=== PATIENT | male | born 1990 | race Caucasian/White ===

== ENCOUNTER 2018-09-28 10:04 | Inpatient (IN) ==
--- NOTE | 2018-09-28 10:20 | Emergency Department Note ---
Disposition Clinical Impression: Suicidal ideation, Depression, IV drug user, History of endocarditis, Marijuana abuse, Narcotic abuse Disposition: Admitted As Inpatient Referrals: NONE,PCP [Primary Care Provider] - Forms: ED Satisfaction Letter General Adult HPI - General Chief complaint: ED Psychiatric Symptoms Stated complaint: Depressed,meds not working Time Seen by Provider: 09/28/18 10:20 Source: patient Limitations: no limitations - History of Present Illness HPI Narrative: 28-year-old male with a history of depression and drug abuse reports emergency department describing increasing anxiety and depression. He reports he has relapsed and is using narcotics again. The patient denies attempted overdose or self injury but feels that he is becoming unstable and may harm himself. The patient reports he has a history of reflux and has had some burning in his abdomen. There is no history of bloody stool. No vomiting diarrhea abdominal pain chest pain shortness of breath described. No fevers cough runny nose or pain sore throat headache or any trouble walking talking hearing seeing or speaking is reported. The patient feels that he may benefit from psychiatric hospitalization, he states he feels like he needs to be admitted to 1A. Pain Scale: 0 - Related Data Previous Rx's Medication Instructions Recorded Sertraline [Zoloft] 50 mg PO DAILY #30 tablet 07/03/18 Allergies Allergy/AdvReac Type Severity Reaction Status Date / Time vancomycin Allergy Hives Verified 09/28/18 10:17 hydrocodone [From Vicodin] AdvReac Dizziness Verified 09/28/18 10:17 Review of Systems: As Per HPI (A complete review of systems was reviewed and is otherwise negative or noncontributory.) Past Medical History - Past Medical History Medical history: Reports: hepatitis Psychiatric history: Reports: depression - Social History Smoking Status: Current every day smoker Smokeless Tobacco Status: No Alcohol use: Reports: none Drug use: Reports: opiates, marijuana Physical Exam - General Limitations: no limitations General appearance: alert, in no apparent distress - Head Head exam: atraumatic, normocephalic, normal inspection - Eye Eye exam: Present: normal appearance, PERRL, EOMI - ENT ENT exam: normal exam, normal oropharynx, mucous membranes moist - Neck Neck exam: Present: normal inspection, full ROM, trachea midline - Chest Chest inspection: Present: normal inspection, symmetric chest wall rise - Respiratory Respiratory exam: Present: normal lung sounds bilaterally. Absent: respiratory distress, prolonged expiratory phase - Cardiovascular Cardiovascular exam: Present: regular rate, normal rhythm, normal heart sounds - Abdominal Exam Abdominal exam: Present: soft, Non-Tender, normal bowel sounds. Absent: tenderness, distention, guarding, rebound, rigidity - Extremities Exam Extremities exam: Present: normal inspection, full ROM, normal capillary refill. Absent: tenderness, pedal edema, joint swelling, calf tenderness - Expanded Lower Extremity Exam Neurovascular/Tendon exam: Present: normal capillary refill. Absent: motor deficit, sensory deficit, tendon deficit, extremity cold to touch, pallor - Back Exam Back exam: Present: full ROM. Absent: tenderness, CVA tenderness (R), CVA tenderness (L) - Neurological Exam Neurological exam: Present: alert, oriented X3, CN II-XII intact. Absent: motor sensory deficit - Psychiatric Psychiatric exam: Present: normal affect, normal mood - Skin Skin exam: Present: warm, dry, intact, normal color Course Vital Signs Temperature 98.0 F 09/28/18 10:13 Pulse Rate 79 09/28/18 10:13 Respiratory Rate 14 09/28/18 10:13 Blood Pressure 130/81 09/28/18 10:13 O2 Sat by Pulse Oximetry 96 09/28/18 10:13 Temperature 98.0 F 09/28/18 10:13 Pulse Rate 79 09/28/18 10:13 Respiratory Rate 14 09/28/18 10:13 Blood Pressure 130/81 09/28/18 10:13 O2 Sat by Pulse Oximetry 96 09/28/18 10:13 Oxygen Delivery Oxygen Delivery Room Air Medical Decision Making - [facility] Narrative Medical decision making narrative: The patient affirms suicidal ideation on my questioning. He has been depressed and not responsive to Zoloft per his report. He has been admitted to the psychiatric unit before. He appears to be medically stable. A psychiatric consult was been requested and the patient was evaluated with plans to admit the patient to the psychiatric unit. - Lab Data Lab results reviewed: Yes I reviewed the patient's lab results. Result diagrams: 09/28/18 11:10 09/28/18 11:10 Lab Results 09/28/18 09/28/18 09/28/18 Range/Units 11:06 11:06 11:10 WBC 7.1 (4.3-11.1) K/mcL RBC 4.43 (4.19-5.50) M/mcL Hgb 12.9 (12.9-16.9) g/dL Hct 38.5 (37.5-50.1) % MCV 86.9 (83.0-100.0) fL MCH 29.1 (28.0-33.3) pg MCHC 33.5 (31.6-35.5) g/dL RDW 13.4 (11.5-14.5) % Plt Count 234 (140-400) K/mcL MPV 10.2 (9.4-12.4) fL Immature Gran % 0.7 (0-4) % Seg Neutrophils % 55.7 % Lymphocytes % 31.8 % Monocytes % 7.7 % Eosinophils % 3.8 % Basophils % 0.3 % Neutrophils # 4.0 (1.6-8.9) K/mcL Lymphocytes # 2.3 (0.6-4.6) K/mcL Monocytes # 0.6 (0.0-1.3) K/mcL Eosinophils # 0.3 (0.0-0.6) K/mcL Basophils # 0.0 (0.0-0.2) K/mcL Sodium (136-145) mEq/L Potassium (3.5-5.1) mEq/L Chloride (98-107) mEq/L Carbon Dioxide (23-29) mEq/L BUN (6-20) mg/dL Creatinine (0.70-1.30) mg/dL Est GFR ( Amer) (> 60) Est GFR (Non-Af Amer) (> 60) BUN/Creatinine Ratio (6-26) Glucose (70-105) mg/dL Calculated Osmolality (280-300) Calcium (8.6-10.3) mg/dL Total Bilirubin (0.3-1.0) mg/dL Direct Bilirubin (0.0-0.2) mg/dL Indirect Bilirubin (0.0-1.2) mg/dL AST (13-39) Units/L ALT (7-52) Units/L Alkaline Phosphatase (34-104) Units/L Serum Total Protein (6.4-8.9) g/dL Albumin (3.5-5.7) g/dL Globulin (2.4-3.5) g/dL Albumin/Globulin Ratio (1.1-2.2) TSH (0.340-5.600) mcIU/mL Urine Color Yellow (Yellow) Urine Clarity Clear (Clear) Urine pH 6.5 (5.0-8.0) pH Units Ur Specific [place] 1.019 (1.010-1.025) Urine Protein Negative (Neg-Trace) mg/dL Urine Glucose (UA) Normal (Normal) mg/dL Urine Ketones Negative (Negative) mg/dL Urine Blood Negative (Negative) Urine Nitrite Negative (Negative) Urine Bilirubin Negative (Negative) Urine Urobilinogen Normal (Normal) mg/dL Ur Leukocyte Esterase Negative (Negative) Salicylates (15.0-30.0) mg/dL Urine Opiates Screen Positive H (Deuiyc=550) ng/mL Acetaminophen (10-20) mcg/mL Ur Barbiturates Screen Negative (Deqgal=083) ng/mL Ur Phencyclidine Scrn Negative (Cutoff=25) ng/mL Ur Amphetamines Screen Negative (Qbplzm=1253) ng/mL U Benzodiazepines Scrn Negative (Mzuocv=674) ng/mL Urine Cocaine Screen Negative (Cutoff= 300) ng/mL U Marijuana (THC) Screen Positive H (Cutoff = 50) ng/mL Ur Drug Screen Interp See Below Ethyl Alcohol (Less than 10) mg/dL 09/28/18 Range/Units 11:10 WBC (4.3-11.1) K/mcL RBC (4.19-5.50) M/mcL Hgb (12.9-16.9) g/dL Hct (37.5-50.1) % MCV (83.0-100.0) fL MCH (28.0-33.3) pg MCHC (31.6-35.5) g/dL RDW (11.5-14.5) % Plt Count (140-400) K/mcL MPV (9.4-12.4) fL Immature Gran % (0-4) % Seg Neutrophils % % Lymphocytes % % Monocytes % % Eosinophils % % Basophils % % Neutrophils # (1.6-8.9) K/mcL Lymphocytes # (0.6-4.6) K/mcL Monocytes # (0.0-1.3) K/mcL Eosinophils # (0.0-0.6) K/mcL Basophils # (0.0-0.2) K/mcL Sodium 139 (136-145) mEq/L Potassium 3.9 (3.5-5.1) mEq/L Chloride 104 (98-107) mEq/L Carbon Dioxide 28 (23-29) mEq/L BUN 13 (6-20) mg/dL Creatinine 0.70 (0.70-1.30) mg/dL Est GFR ( Amer) > 60 (> 60) Est GFR (Non-Af Amer) > 60 (> 60) BUN/Creatinine Ratio 19 (6-26) Glucose 101 (70-105) mg/dL Calculated Osmolality 288 (280-300) Calcium 9.6 (8.6-10.3) mg/dL Total Bilirubin 1.1 H (0.3-1.0) mg/dL Direct Bilirubin 0.5 H (0.0-0.2) mg/dL Indirect Bilirubin 0.6 (0.0-1.2) mg/dL AST 28 (13-39) Units/L ALT 58 H (7-52) Units/L Alkaline Phosphatase 76 (34-104) Units/L Serum Total Protein 7.0 (6.4-8.9) g/dL Albumin 4.2 (3.5-5.7) g/dL Globulin 2.8 (2.4-3.5) g/dL Albumin/Globulin Ratio 1.5 (1.1-2.2) TSH 4.151 (0.340-5.600) mcIU/mL Urine Color (Yellow) Urine Clarity (Clear) Urine pH (5.0-8.0) pH Units Ur Specific [place] (1.010-1.025) Urine Protein (Neg-Trace) mg/dL Urine Glucose (UA) (Normal) mg/dL Urine Ketones (Negative) mg/dL Urine Blood (Negative) Urine Nitrite (Negative) Urine Bilirubin (Negative) Urine Urobilinogen (Normal) mg/dL Ur Leukocyte Esterase (Negative) Salicylates < 2.5 L (15.0-30.0) mg/dL Urine Opiates Screen (Vknkcp=502) ng/mL Acetaminophen < 10 L (10-20) mcg/mL Ur Barbiturates Screen (Qtnvvw=384) ng/mL Ur Phencyclidine Scrn (Cutoff=25) ng/mL Ur Amphetamines Screen (Qzhqcz=4893) ng/mL U Benzodiazepines Scrn (Qfaxqg=439) ng/mL Urine Cocaine Screen (Cutoff= 300) ng/mL U Marijuana (THC) Screen (Cutoff = 50) ng/mL Ur Drug Screen Interp Ethyl Alcohol < 10 (Less than 10) mg/dL
[2018-09-28 11:16] LABS: Bilirubin,Urine Negative (Negative); Blood,Urine Negative (Negative); Clarity,Urine Clear (Clear); Color,Urine Yellow (Yellow); Glucose,Urine (UA) Normal (Normal); Ketones,Urine Negative (Negative); Leukocyte Esterase,Urine Negative (Negative); Nitrite,Urine Negative (Negative); PH,Urine 6.5 pH Units (5.0-8.0); Protein,Urine Negative (Neg-Trace); Specific Gravity,Urine 1.019 (1.010-1.025); Urobilinogen,Urine Normal (Normal)
[2018-09-28 11:21] LABS: Basophils % 0.3 %; Eosinophils # 0.3 K/mcL (0.0-0.6); Eosinophils % 3.8 %; Hematocrit 38.5 % (37.5-50.1); Hemoglobin 12.9 g/dL (12.9-16.9); Immature Granulocytes % 0.7 % (0-4); Lymphocytes # 2.3 K/mcL (0.6-4.6); Lymphocytes % 31.8 %; Mean Corpuscular HGB Conc 33.5 g/dL (31.6-35.5); Mean Corpuscular Hemoglobin 29.1 pg (28.0-33.3); Mean Corpuscular Volume 86.9 fL (83.0-100.0); Mean Platelet Volume 10.2 fL (9.4-12.4); Monocytes # 0.6 K/mcL (0.0-1.3); Monocytes % 7.7 %; Platelet Count 234 K/mcL (140-400); Red Blood Count 4.43 M/mcL (4.19-5.50); Red Cell Distribution Width 13.4 % (11.5-14.5); Segmented Neutrophils % 55.7 %
[2018-09-28 11:25] LABS: Amphetamine Screen,Urine Negative ng/mL (Cutoff=1000); Barbiturate Screen,Urine Negative ng/mL (Cutoff=200); Benzodiazepines Screen,Urine Negative ng/mL (Cutoff=200); Cannabinoid Screen,Urine Positive ng/mL (Cutoff = 50); Cocaine Screen,Urine Negative ng/mL (Cutoff= 300); Opiate Screen,Urine Positive ng/mL (Cutoff=300); Phencyclidine Screen,Urine Negative ng/mL (Cutoff=25)
[2018-09-28 11:42] LABS: Acetaminophen < 10 mcg/mL (10-20); Alanine Aminotransferase 58 Units/L (7-52); Albumin 4.2 g/dL (3.5-5.7); Albumin/Globulin Ratio 1.5 (1.1-2.2); Alkaline Phosphatase 76 Units/L (34-104); Aspartate Amino Transferase 28 Units/L (13-39); BUN/Creatinine Ratio 19 (6-26); Bilirubin,Direct 0.5 mg/dL (0.0-0.2); Bilirubin,Indirect 0.6 mg/dL (0.0-1.2); Bilirubin,Total 1.1 mg/dL (0.3-1.0); Blood Urea Nitrogen 13 mg/dL (6-20); Calcium 9.6 mg/dL (8.6-10.3); Carbon Dioxide 28 mEq/L (23-29); Chloride 104 mEq/L (98-107); Ethanol < 10 mg/dL (Less than 10); Globulin 2.8 g/dL (2.4-3.5); Glucose 101 mg/dL (70-105); Osmolality,Calculated 288 (280-300); Potassium 3.9 mEq/L (3.5-5.1); Salicylate < 2.5 mg/dL (15.0-30.0); Sodium 139 mEq/L (136-145); eGFR For Non-African Americans > 60 (> 60)
[2018-09-28] MEDS ORDERED: Famotidine 20 MG TABLET PO ONE (11:53)
[2018-09-28 11:54] LABS: Thyroid Stimulating Hormone 4.151 mcIU/mL (0.340-5.600)
[2018-09-28] MEDS ORDERED: traZODone 50 MG TABLET PO PRN (15:18)
[2018-09-28] MEDS ORDERED: *HR* LORazepam 2 MG/ML VIAL IM PRN (15:18)
[2018-09-28] MEDS ORDERED: *HR* LORazepam 1 MG TABLET PO PRN (15:18)
[2018-09-28] MEDS ORDERED: Haloperidol Lactate 5 MG/ML VIAL IM PRN (15:18)
[2018-09-28] MEDS ORDERED: MOM Conc 10 ML UD.LIQ PO PRN (15:18)
[2018-09-28] MEDS ORDERED: Mag Hydrox/Al Hydrox/Simeth 30 ML UDC PO PRN (15:18)
[2018-09-28] MEDS: Nicotine 2 MG GUM BC PRN (19:00)
--- NOTE | 2018-09-29 11:23 | Psychiatry History & Physical ---
Date of Encounter: 09/29/18 Time of Encounter: 11:18 History of Present Illness Patient Stated Chief Complaint: suicidal ideation Medicare Admission Attestation: For traditional Medicare patients the provided hospital inpatient services are reasonable and necessary and in the case of services not specified as inpatient-only under 42 CFR 419.22 (n), that they are appropriately provided as inpatient services in accordance 42 CFR 412.3. For Critical Access Hospital the patient may reasonably be expected to be discharged or transferred to a hospital within 96 hours after admission to the Critical Access Hospital. Admitted From: Home Plans for Post Hospital Care: Home History of Present Illness: Mr. Pérez is a 28 year old male who was admitted following a relapse on heroin and increasing depression with SI. Client had been clean for 22 months with the help of Vivitrol but relapsed approximately one month ago. Stopped using Vivitrol in July because he thought he could control his addiction on his own. Set up an appointment for himself to start getting it again but won't be seen until October 14. Client did not think he could wait that long as he is spending $200 a day and using a gram of heroin a day. Client has one previous hospitalization following an overdose attempt. Also attempted to shoot himself around that time but does not like to talk about it. Started on Zoloft with positive results. However, he stopped the medication after being discharged and did not follow up with treatment providers as recommended. Thinks now he needs the help. Not willing to consider rehab but wants the Zoloft, Vivitrol and outpatient linkage. Has support from mother and girlfriend. Denies physical health problems although chart indicates he is Hep C positive. No other drug use except for THC. Family history of depression in mother and substance abuse in father. Allergy to Vicodin. States he breaks out in hives. Past Med Surg Social Fam HX - Past Medical History Medical history: hepatitis - Past Psychiatric History Psychiatric history: Reports: depression, prior suicide attempt, previous psychiatric hospitalization Family psychiatric history: Yes Family Psychiatric History Details: mother-depression, father-substance abuse Family History of Suicide: Unknown - Social History Smoking Status: Current every day smoker Smokeless Tobacco Status: No Alcohol use: none Drug use: opiates, marijuana, IV Drug Use - Family History Mother Family Member Ethnicity: Non- Living Status: Still Living Hx Family Endocrine Disorder: Yes (DM) Medications & Allergies Sertraline [Zoloft] 50 mg PO DAILY #30 tablet 07/03/18 [Rx] Allergy/AdvReac Type Severity Reaction Status Date / Time vancomycin Allergy Hives Verified 09/28/18 10:17 hydrocodone [From Vicodin] AdvReac Dizziness Verified 09/28/18 10:17 Review of Systems Constitutional: Denies: fever, chills, weakness, weight change Eyes: Denies: eye pain, vision change Ears, Nose, Throat: Denies: ear pain, throat pain, dental pain, hearing loss, congestion Cardiovascular: Denies: chest pain, palpitations, dyspnea on exertion Respiratory: Denies: cough, dyspnea, wheezes Gastrointestinal: Denies: abdominal pain, nausea, vomiting, diarrhea, constipation Genitourinary male: Denies: urgency, dysuria, frequency, genital lesions Musculoskeletal: Denies: joint swelling, joint pain Integumentary: Denies: rash, lesions, pruritus Neurological: Denies: headache, weakness, numbness, memory loss Endocrine: Denies: fatigue, heat or cold intolerance Hematologic/Lymphatic: Denies: easy bruising, lymphadenopathy Allergic/Immunologic: Denies: urticaria, itchy eyes Exam - HEENT Head exam IM: Present: atraumatic Eye exam IM: Present: EOMI, normal appearance, PERRL ENT exam IM: Present: normal exam - Neurological Neurological exam: Present: CN II-XII intact - Respiratory Respiratory exam IM: Present: CTAB - GI/Abdominal GI/Abdominal exam IM: Present: normal bowel sounds, soft. Absent: tenderness - Extremities Extremities exam IM: Present: full ROM - Skin Skin exam IM: Present: dry, warm - Constitutional Vitals: Temp Pulse Resp BP Pulse Ox 98.2 F 77 18 119/80 99 09/28/18 19:36 09/28/18 19:36 09/28/18 19:36 09/28/18 19:36 09/28/18 19:36 General appearance: age & developmentally appropriate, well-groomed, well- nourished - Musculoskeletal Gait: normal Station: relaxed Strength & Tone: normal for patient - Psychiatric Patient Orientation: Yes Person, Yes Time, Yes Place Level of alertness: Alert Behavior: calm, cooperative Psychomotor activity: Normal Eye Contact: Maintains Eye Contact Mood Description: Depressed Affect description: congruent with mood Speech Volume: Normal Speech pattern: normal rate, normal rhythm, normal tone, fluent, spontaneous Language & Vocabulary: consistent with education Thought Process: Linear, Goal Oriented Thought Content: Yes Suicidal ideation, No Homicidal ideation, No Overt delusions Perceptual Disturbances: No Auditory hallucinations, No Visual hallucinations Attention Span Ability: Capable of Focused Attention Memory Description: Grossly Intact Patient Reliability: Reliable Historian Fund of knowledge: Yes abstraction ability, Yes average, Yes aware of current events Intelligence Estimate: Average Judgment: Limited Insight: Partial Results - Drug Levels and Toxicology Drug Levels and Toxicology: Drug Levels and Toxicity 09/28/18 09/28/18 11:06 11:10 Urine Opiates Screen Positive H Acetaminophen < 10 L Ur Barbiturates Screen Negative Ur Phencyclidine Scrn Negative Ur Amphetamines Screen Negative U Benzodiazepines Scrn Negative Urine Cocaine Screen Negative U Marijuana (THC) Screen Positive H Ethyl Alcohol < 10 - Labs Labs: Laboratory Last Values WBC 7.1 K/mcL (4.3-11.1) 09/28/18 11:10 RBC 4.43 M/mcL (4.19-5.50) 09/28/18 11:10 Hgb 12.9 g/dL (12.9-16.9) 09/28/18 11:10 Hct 38.5 % (37.5-50.1) 09/28/18 11:10 MCV 86.9 fL (83.0-100.0) 09/28/18 11:10 MCH 29.1 pg (28.0-33.3) 09/28/18 11:10 MCHC 33.5 g/dL (31.6-35.5) 09/28/18 11:10 RDW 13.4 % (11.5-14.5) 09/28/18 11:10 Plt Count 234 K/mcL (140-400) 09/28/18 11:10 MPV 10.2 fL (9.4-12.4) 09/28/18 11:10 Immature Gran % 0.7 % (0-4) 09/28/18 11:10 Seg Neutrophils % 55.7 % 09/28/18 11:10 Lymphocytes % 31.8 % 09/28/18 11:10 Monocytes % 7.7 % 09/28/18 11:10 Eosinophils % 3.8 % 09/28/18 11:10 Basophils % 0.3 % 09/28/18 11:10 Neutrophils # 4.0 K/mcL (1.6-8.9) 09/28/18 11:10 Lymphocytes # 2.3 K/mcL (0.6-4.6) 09/28/18 11:10 Monocytes # 0.6 K/mcL (0.0-1.3) 09/28/18 11:10 Eosinophils # 0.3 K/mcL (0.0-0.6) 09/28/18 11:10 Basophils # 0.0 K/mcL (0.0-0.2) 09/28/18 11:10 Sodium 139 mEq/L (136-145) 09/28/18 11:10 Potassium 3.9 mEq/L (3.5-5.1) 09/28/18 11:10 Chloride 104 mEq/L (98-107) 09/28/18 11:10 Carbon Dioxide 28 mEq/L (23-29) 09/28/18 11:10 BUN 13 mg/dL (6-20) 09/28/18 11:10 Creatinine 0.70 mg/dL (0.70-1.30) 09/28/18 11:10 Est GFR ( Amer) > 60 (> 60) 09/28/18 11:10 Est GFR (Non-Af Amer) > 60 (> 60) 09/28/18 11:10 BUN/Creatinine Ratio 19 (6-26) 09/28/18 11:10 Glucose 101 mg/dL (70-105) 09/28/18 11:10 Calculated Osmolality 288 (280-300) 09/28/18 11:10 Calcium 9.6 mg/dL (8.6-10.3) 09/28/18 11:10 Total Bilirubin 1.1 mg/dL (0.3-1.0) H 09/28/18 11:10 Direct Bilirubin 0.5 mg/dL (0.0-0.2) H 09/28/18 11:10 Indirect Bilirubin 0.6 mg/dL (0.0-1.2) 09/28/18 11:10 AST 28 Units/L (13-39) 09/28/18 11:10 ALT 58 Units/L (7-52) H 09/28/18 11:10 Alkaline Phosphatase 76 Units/L (34-104) 09/28/18 11:10 Serum Total Protein 7.0 g/dL (6.4-8.9) 09/28/18 11:10 Albumin 4.2 g/dL (3.5-5.7) 09/28/18 11:10 Globulin 2.8 g/dL (2.4-3.5) 09/28/18 11:10 Albumin/Globulin Ratio 1.5 (1.1-2.2) 09/28/18 11:10 TSH 4.151 mcIU/mL (0.340-5.600) 09/28/18 11:10 Urine Color Yellow (Yellow) 09/28/18 11:06 Urine Clarity Clear (Clear) 09/28/18 11:06 Urine pH 6.5 pH Units (5.0-8.0) 09/28/18 11:06 Ur Specific [place] 1.019 (1.010-1.025) 09/28/18 11:06 Urine Protein Negative mg/dL (Neg-Trace) 09/28/18 11:06 Urine Glucose (UA) Normal mg/dL (Normal) 09/28/18 11:06 Urine Ketones Negative mg/dL (Negative) 09/28/18 11:06 Urine Blood Negative (Negative) 09/28/18 11:06 Urine Nitrite Negative (Negative) 09/28/18 11:06 Urine Bilirubin Negative (Negative) 09/28/18 11:06 Urine Urobilinogen Normal mg/dL (Normal) 09/28/18 11:06 Ur Leukocyte Esterase Negative (Negative) 09/28/18 11:06 Salicylates < 2.5 mg/dL (15.0-30.0) L 09/28/18 11:10 Urine Opiates Screen Positive ng/mL (Vhifdr=931) H 09/28/18 11:06 Acetaminophen < 10 mcg/mL (10-20) L 09/28/18 11:10 Ur Barbiturates Screen Negative ng/mL (Cixrqv=133) 09/28/18 11:06 Ur Phencyclidine Scrn Negative ng/mL (Cutoff=25) 09/28/18 11:06 Ur Amphetamines Screen Negative ng/mL (Cezxwo=3771) 09/28/18 11:06 U Benzodiazepines Scrn Negative ng/mL (Lzubap=710) 09/28/18 11:06 Urine Cocaine Screen Negative ng/mL (Cutoff= 300) 09/28/18 11:06 U Marijuana (THC) Screen Positive ng/mL (Cutoff = 50) H 09/28/18 11:06 Ur Drug Screen Interp See Below 09/28/18 11:06 Ethyl Alcohol < 10 mg/dL (Less than 10) 09/28/18 11:10 Assessment and Plan (1) Substance induced mood disorder Current visit: Yes Status: Acute Plan: Admit inpatient for safety and stabilization, Close observation, Suicide Precautions per unit protocol, Encourage participation in unit milieu, Group Therapy, Monitor sleep, Monitor appetite Risks, benefits, side effects, alternatives discussed w/pt: Yes Patient agreeable to treatment: Yes Plans for Post Hospital Care: Home Estimated Length of Stay (Days): 4 (2) Opiate dependence Current visit: Yes Status: Acute Plan: Admit inpatient for safety and stabilization, Close observation, Suicide Precautions per unit protocol, Encourage participation in unit milieu, Group Therapy, Monitor sleep, Monitor appetite Risks, benefits, side effects, alternatives discussed w/pt: Yes Patient agreeable to treatment: Yes Plans for Post Hospital Care: Home Estimated Length of Stay (Days): 4 Qualifiers: Substance use status: with opioid-induced mood disorder Qualified Code(s): F11.24 - Opioid dependence with opioid-induced mood disorder
[2018-09-29] MEDS: Ibuprofen 400 MG TABLET PO PRN (15:38)
[2018-09-29] MEDS: hydrOXYzine pamoate 25 MG CAPSULE PO PRN (15:38)
[2018-09-29] MEDS: cloNIDine HCl 0.1 MG TABLET PO PRN (15:38)
[2018-09-29] MEDS: Nicotine 2 MG GUM BC PRN (16:01)
--- NOTE | 2018-09-30 11:56 | Psychiatry Progress Note ---
Date of Encounter: 09/30/18 Time of Encounter: 11:53 Subjective Interval history: Client reports he is feeling better. Withdrawal symptoms have lessened. Mood has improved with Zoloft. Feels he is on the right track. Anxious to get back on Vivitrol. Has an appointment set up for October 14. Did not think he could make it until the so he presented to the hospital for help. Cannot receive Vivitrol in the hospital but discussed taking oral Naltrexone until his outpatient appointment. Client agrees with plan and thinks he will be safe doing this. Will plan on giving him a dose today and discharge tomorrow after his second dose provided he is tolerating everything well. Review of Systems Constitutional: Denies: fever, chills, weakness, weight change Eyes: Denies: eye pain, vision change Ears, Nose, Throat: Denies: ear pain, throat pain, dental pain, hearing loss, congestion Cardiovascular: Denies: chest pain, palpitations, dyspnea on exertion Respiratory: Denies: cough, dyspnea, wheezes Gastrointestinal: Denies: abdominal pain, nausea, vomiting, diarrhea, constipation Musculoskeletal: Denies: joint swelling, joint pain Neurological: Denies: headache, weakness, numbness, memory loss Results - Vital Signs Vital Signs: Temp Pulse Resp BP Pulse Ox 98.2 F 92 18 127/74 98 09/30/18 09:00 09/30/18 09:00 09/30/18 09:00 09/30/18 09:00 09/30/18 09:00 Assessment and Plan (1) Substance induced mood disorder Current visit: Yes Status: Acute Plan: Continue hospitalization, Close observation, Suicide Precautions per unit protocol, Encourage participation in unit milieu, Group Therapy, Monitor sleep, Monitor appetite Risks, benefits, side effects, alternatives discussed w/pt: Yes Patient agreeable to treatment: Yes (2) Opiate dependence Current visit: Yes Status: Acute Plan: Continue hospitalization, Close observation, Suicide Precautions per unit protocol, Encourage participation in unit milieu, Group Therapy, Monitor sleep, Monitor appetite Risks, benefits, side effects, alternatives discussed w/pt: Yes Patient agreeable to treatment: Yes Qualifiers: Substance use status: with opioid-induced mood disorder Qualified Code(s): F11.24 - Opioid dependence with opioid-induced mood disorder Consult Discharge Plan - Plan Referrals: NONE,PCP [Primary Care Provider] - Psychiatry Exam - Constitutional Vitals: Temp Pulse Resp BP Pulse Ox 98.2 F 92 18 127/74 98 09/30/18 09:00 09/30/18 09:00 09/30/18 09:00 09/30/18 09:00 09/30/18 09:00 General appearance: age & developmentally appropriate, well-groomed, well- nourished - Musculoskeletal Gait: normal Station: relaxed Strength & Tone: normal for patient - Psychiatric Patient Orientation: Yes Person, Yes Time, Yes Place Level of alertness: Alert Behavior: calm, cooperative Psychomotor activity: Normal Eye Contact: Maintains Eye Contact Mood Description: Depressed Affect description: congruent with mood Speech Volume: Normal Speech pattern: normal rate, normal rhythm, normal tone, fluent, spontaneous Language & Vocabulary: consistent with education Thought Process: Linear, Goal Oriented Thought Content: No Suicidal ideation, No Homicidal ideation, No Overt delusions Perceptual Disturbances: No Auditory hallucinations, No Visual hallucinations Attention Span Ability: Capable of Focused Attention Memory Description: Grossly Intact Patient Reliability: Reliable Historian Fund of knowledge: Yes abstraction ability, Yes aware of current events Intelligence Estimate: Average Judgment: Fair Insight: Partial
[2018-09-30] MEDS: NALTREXONE HCL 50 MG TABLET PO SCH (13:28)
[2018-09-30] MEDS: hydrOXYzine pamoate 25 MG CAPSULE PO PRN ×2 (15:45→20:18)
[2018-09-30] MEDS: cloNIDine HCl 0.1 MG TABLET PO PRN (20:21)
[2018-10-01] MEDS: cloNIDine HCl 0.1 MG TABLET PO PRN (02:55)
[2018-10-01] MEDS: Ibuprofen 400 MG TABLET PO PRN (02:55)
[2018-10-01 08:46] VITALS: BP 124/75
--- NOTE | 2018-10-01 09:15 | Discharge Summary ---
Date of Encounter: 10/01/18 Time of Encounter: 09:12 Diagnosis - Discharge Diagnosis (1) Substance induced mood disorder Status: Acute (2) Opiate dependence Status: Acute Qualifiers: Substance use status: with opioid-induced mood disorder Qualified Code(s): F11.24 - Opioid dependence with opioid-induced mood disorder Medications - Discharge Medications Prescriptions: Naltrexone HCl 50 mg PO DAILY #14 tablet Sertraline [Zoloft] 50 mg PO DAILY #30 tablet Naltrexone HCl 50 mg PO DAILY #14 tablet 10/01/18 [Rx] Sertraline [Zoloft] 50 mg PO DAILY #30 tablet 10/01/18 [Rx] Allergy/AdvReac Type Severity Reaction Status Date / Time vancomycin Allergy Hives Verified 09/28/18 10:17 hydrocodone [From Vicodin] AdvReac Dizziness Verified 09/28/18 10:17 Results Procedures and tests throughout hospitalization: Completed Lab Orders Category Date Time Status Acetaminophen Stat Lab 09/28/18 11:10 Completed Basic Metabolic Panel Stat Lab 09/28/18 11:10 Completed Complete Blood Count [HEME] Stat Lab 09/28/18 11:10 Completed Drug Screen, Urine [UCHEM] Stat Lab 09/28/18 11:06 Completed Ethanol Stat Lab 09/28/18 11:10 Completed Hepatic Panel Stat Lab 09/28/18 11:10 Completed Salicylate Stat Lab 09/28/18 11:10 Completed Thyroid Stimulating Hormone Stat Lab 09/28/18 11:10 Completed Urinalysis reflex Microscopic [URIN] Stat Lab 09/28/18 11:06 Completed Provider Date of admission: 09/29/18 13:00 Primary care physician: PCP NONE Discharging clinician: Audrey Ashraf Psychiatry Exam - Constitutional Vitals: Temp Pulse Resp BP Pulse Ox 97.7 F 56 20 124/75 98 10/01/18 08:45 10/01/18 08:45 10/01/18 08:45 10/01/18 08:45 10/01/18 08:45 General appearance: age & developmentally appropriate, well-groomed, well-nour ished - Musculoskeletal Gait: normal Station: relaxed Strength & Tone: normal for patient - Psychiatric Patient Orientation: Yes Person, Yes Time, Yes Place Level of alertness: Alert Behavior: calm, cooperative Psychomotor activity: Normal Eye Contact: Maintains Eye Contact Mood Description: Euthymic/stable Affect description: congruent with mood Speech Volume: Normal Speech pattern: normal rate, normal rhythm, normal tone, fluent, spontaneous Language & Vocabulary: consistent with education Thought Process: Linear, Goal Oriented Thought Content: No Suicidal ideation, No Homicidal ideation, No Overt delusions Perceptual Disturbances: No Auditory hallucinations, No Visual hallucinations Attention Span Ability: Capable of Focused Attention Memory Description: Grossly Intact Patient Reliability: Reliable Historian Fund of knowledge: Yes abstraction ability, Yes aware of current events Intelligence Estimate: Average Judgment: Fair Insight: Partial Hospital Course Hospital course: Mr. Pérez is a 28 year old male who was admitted secondary to relapsing on heroin and SI. Previously took Zoloft with some success so this medication was restarted with positive results. Client had already set up an appointment for a Vivitrol injection but the appointment was not until October 14 and client did not think he could wait that long. He was started on oral Naltrexone and will be discharged with enough to get him through to his first Vivitrol appointment. Client had severe vomiting last night. However, he denied all other withdrawal symptoms and had not been experiencing withdrawal symptoms the day before. He has been through opiate withdrawal in the past and denied this was similar to what he has previously experienced. Suspect he had food poisoning or a stomach virus. Doing fine this morning. Tolerating PO fine and even took Motrin which did not upset his stomach. Whatever he had was short lived. Client reports his mood is stable. Denying SI. Feels ready for discharge. Not interested in rehab. However, he had close to two years stable on the Vivitrol injection before and he thinks he will be successful again. Has support from family and girlfriend. Total time spent with client greater than 30 minutes. - Time Spent with Patient Total time spent providing and/or coordinating discharge services: Assessment and Plan - Patient/Caregiver Discharge Instructions Activity: resume usual activities as tolerated Diet: regular diet - Follow up Plan Follow up with: NONE,PCP [Primary Care Provider] - Functional capacity at discharge: independent ambulation Overall status at discharge: Stable Disposition: Home, Self-Care Quality - Multiple Antipsychotics Patient discharged on 2 or more antipsychotic medications: No Procedures - Procedures Procedures: Medication Management, Crisis Stabilization, Supportive Therapy, Group Therapy
[2018-10-01] MEDS: NALTREXONE HCL 50 MG TABLET PO SCH (09:36)
== END 2018-10-01 10:00 | disposition home or self-care (01) | DRG 773 ==
LOC: 1ANU 10:04 → EMEROOARM 10:04 → 1ANU 15:34
PROVIDERS: ADMIT Psychiatry & Neurology Psychiatry; ATTEND Psychiatry & Neurology Psychiatry